=== PATIENT | female | born 2000 | race Caucasian/White ===

== ENCOUNTER 2023-03-23 22:04 | Inpatient (IN) | payer BC, SELFPAY ==
[2023-03-23 22:16] VITALS: BMI 31.4
[2023-03-23] MEDS ORDERED: Ondansetron PF 4 MG/2 ML Vial IVP PRN ×2 (22:30→23:32)
[2023-03-23] MEDS ORDERED: Tranexamic Acid 1,000 MG/10 ML VIAL IVP PRN (22:30)
[2023-03-23] MEDS ORDERED: Lidocaine 1% (PF) 30 ML VIAL SC PRN (22:30)
[2023-03-23] MEDS ORDERED: Promethazine HCl 25 MG/ML VIAL IM PRN ×2 (22:30→23:32)
[2023-03-23] MEDS ORDERED: Diphenoxylate HCl/Atropine Tablet PO PRN (22:30)
[2023-03-23] MEDS ORDERED: hydrALAZINE 20 MG/ML VIAL SLOW IVP PRN (22:30)
[2023-03-23] MEDS ORDERED: Methylergonovine 0.2 MG/ML VIAL IM PRN (22:30)
[2023-03-23] MEDS ORDERED: Misoprostol 200 MCG TAB PR PRN (22:30)
[2023-03-23] MEDS ORDERED: Oxytocin 30 units/NS 500 ML 500 ML IV SCH (22:30)
[2023-03-23] MEDS ORDERED: Carboprost 250 MCG/ML AMP IM PRN (22:30)
[2023-03-23] MEDS ORDERED: fentaNYL/Ropivacaine Epidural 100 ML ONE (22:35)
[2023-03-23 22:45] LABS: Hematocrit 36.4 % (34.9-44.5); Hemoglobin 12.8 g/dL (12.0-15.5); Mean Corpuscular HGB CONC 35.2 g/dL (32.0-36.0); Mean Corpuscular Hemoglobin 33.2 pg (27.0-33.0); Mean Corpuscular Volume 94.5 fl (81.6-98.3); Mean Platelet Volume 9.9 fl (7.4-10.4); Platelet Count 313 10x3/uL (150-450); RBC Distribution Width 11.9 % (11.5-14.5); Red Blood Cell (RBC) Count 3.85 10x6/uL (3.90-5.03); White Blood Cell (WBC) Count 27.7 10x3/uL (3.5-10.5)
[2023-03-23] MEDS ORDERED: fentaNYL 50 mcg/mL 1 mL Vial SLOW IVP SCH (22:45)
[2023-03-23] MEDS ORDERED: Penicillin G Potassium 5 MILL.UNITS in Sodium Chloride 0.9% 100 ML IVPB SCH (22:45)
[2023-03-23 23:15] LABS: HBSAg Index 0.12 S/CO (0-0.99); Hep B Surf Ag - L&D Non-Reactive S/CO (NonReactive)
[2023-03-23 23:16] LABS: Syphilis Antibody Nonreactive (Nonreactive); Syphilis Antibody Index 0.03 S/CO (<1.00 Non-Reactive)
[2023-03-23] MEDS ORDERED: Naloxone HCl 0.4 mg/ml Vial IVP PRN ×2 (23:32)
[2023-03-23] MEDS ORDERED: Acetaminophen 325 MG TAB PO PRN (23:32)
[2023-03-23] MEDS ORDERED: ePHEDrine Sulfate 50 MG/10 ML VIAL SLOW IVP PRN (23:32)
[2023-03-23] MEDS ORDERED: Lactated Ringer's 500 ML IV PRN (23:32)
[2023-03-23] MEDS ORDERED: diphenhydrAMINE 50 MG/ML VIAL IVP PRN (23:32)
[2023-03-23] MEDS ORDERED: Moisturizing Cream (Eucerin) 113 GM JAR TOP PRN (23:32)
[2023-03-23] MEDS ORDERED: Communication Order-Pharmacy FS SCH (23:45)
[2023-03-23] MEDS ORDERED: fentaNYL 2 mcg/Ropivacaine 0.2% Epidural 100 ML CADD EPIDURAL SCH (23:45)
[2023-03-24] MEDS ORDERED: fentaNYL 50 mcg/mL 1 mL Vial ONE (00:24)
[2023-03-24] MEDS: Penicillin G 2.5 MILL.units 2.5 MILL.UNITS in Premix Bag 1 BAG IVPB SCH ×3 (03:18→14:00)
[2023-03-24] MEDS ORDERED: CEFAZOLIN 2 GM VIAL ONE (06:29)
[2023-03-24] MEDS ORDERED: Azithromycin 500 MG VIAL ONE (06:30)
[2023-03-24] MEDS ORDERED: Bicitra 30 ML UDCUP PO PRN (06:55)
[2023-03-24] MEDS ORDERED: Famotidine/PF 20 mg/2ml Vial SLOW IVP PRN (06:55)
[2023-03-24] MEDS ORDERED: Azithromycin 500 MG in Sodium Chloride 0.9% 250 ML 250 ML IVPB SCH (07:00)
[2023-03-24] MEDS ORDERED: CEFAZOLIN 2 GM in Sodium Chloride 0.9% 100 ML IVPB SCH (07:00)
[2023-03-24] MEDS ORDERED: Chloroprocaine 3% PF 20 ML VIAL ONE (07:11)
[2023-03-24] MEDS ORDERED: PHENYLEPHRINE-NS 100 MCG/ML 10 ML SYRINGE ONE (07:11)
[2023-03-24] MEDS ORDERED: Ketorolac Tromethamine 30 MG/ML VIAL ONE (07:11)
[2023-03-24] MEDS ORDERED: Ondansetron PF 4 MG/2 ML Vial ONE (07:11)
[2023-03-24] MEDS ORDERED: Dexamethasone 4 mg/ml Vial ONE (07:11)
[2023-03-24] MEDS ORDERED: Oxytocin 10 UNITS/ML VIAL ONE (07:11)
[2023-03-24] MEDS ORDERED: Morphine PF 10 MG/10 ML VIAL ONE (07:38)
[2023-03-24] MEDS ORDERED: Succinylcholine 200 MG/10 ml SYRINGE FS ONE (07:46)
[2023-03-24] MEDS ORDERED: PROPOFOL 20 ML ONE (07:46)
[2023-03-24 08:11] LABS: RapidComm Collect By OR NURSE
[2023-03-24 08:14] LABS: RapidComm Collect By OR NURSE; pH (Cord, venous) 7.284 (7.250-7.350)
[2023-03-24] MEDS ORDERED: diphenhydrAMINE 50 MG/ML VIAL IVP PRN ×3 (08:47→08:48)
[2023-03-24] MEDS ORDERED: Ketorolac Tromethamine 30 MG/ML VIAL IVP PRN (08:47)
[2023-03-24] MEDS ORDERED: Moisturizing Cream (Eucerin) 113 GM JAR TOP PRN (08:47)
[2023-03-24] MEDS ORDERED: diphenhydrAMINE 50 MG/ML VIAL IM PRN ×2 (08:47→08:48)
[2023-03-24] MEDS ORDERED: Ondansetron PF 4 MG/2 ML Vial IVP PRN ×4 (08:47→08:48)
[2023-03-24] MEDS ORDERED: Naloxone HCl 0.4 mg/ml Vial IV PRN ×3 (08:47→08:48)
[2023-03-24] MEDS ORDERED: fentaNYL 50 mcg/mL 1 mL Vial SLOW IVP PRN (08:47)
[2023-03-24] MEDS ORDERED: Meperidine HCl/PF 25 MG/ML VIAL SLOW IVP PRN (08:47)
[2023-03-24] MEDS ORDERED: Promethazine HCl 25 MG SUPP PR PRN (08:47)
[2023-03-24] MEDS ORDERED: Promethazine HCl 25 MG/ML VIAL IM PRN ×3 (08:47→08:48)
[2023-03-24] MEDS ORDERED: Naloxone HCl 0.4 mg/ml Vial IVP PRN ×2 (08:47)
[2023-03-24] MEDS ORDERED: diphenhydrAMINE 25 MG CAP PO PRN ×2 (08:47→08:48)
[2023-03-24] MEDS ORDERED: FENTANYL 500 MCG/10 ML VIAL 2,000 MCG in Sodium Chloride 0.9% 60 ML IV PRN (08:48)
[2023-03-24] MEDS ORDERED: Ketorolac Tromethamine 30 MG/ML VIAL IVP SCH (09:00)
[2023-03-24] MEDS ORDERED: FENTANYL 500 MCG/10 ML VIAL 1,000 MCG in Sodium Chloride 0.9% 30 ML IV PRN (09:00)
[2023-03-24] MEDS ORDERED: Communication Order-Pharmacy FS PRN (09:00)
[2023-03-24] MEDS ORDERED: Communication Order-Pharmacy FS SCH ×2 (09:00)
[2023-03-24] MEDS ORDERED: Lanolin Ointment 7 GM TUBE TOP PRN (11:16)
[2023-03-24] MEDS ORDERED: Boostrix 0.5 ML (Tdap) VIAL (>/=7 yrs of age) IM ONE (11:16)
[2023-03-24] MEDS ORDERED: Simethicone Chewable 80 MG TAB PO PRN (11:16)
[2023-03-24] MEDS ORDERED: hydrALAZINE 20 MG/ML VIAL SLOW IVP PRN (11:16)
[2023-03-24] MEDS: Docusate 100 MG CAP PO SCH (21:00)
[2023-03-25] MEDS ORDERED: HYDROcodone/Acetaminophen 5/325 mg Tablet PO PRN (02:45)
[2023-03-25] MEDS: HYDROcodone/Acetaminophen 5/325 mg Tablet PO PRN ×5 (03:16→21:24)
[2023-03-25 05:51] LABS: Hematocrit 28.6 % (34.9-44.5); Hemoglobin 9.9 g/dL (12.0-15.5); Mean Corpuscular HGB CONC 34.6 g/dL (32.0-36.0); Mean Corpuscular Hemoglobin 33.4 pg (27.0-33.0); Mean Corpuscular Volume 96.6 fl (81.6-98.3); Mean Platelet Volume 9.9 fl (7.4-10.4); Platelet Count 203 10x3/uL (150-450); RBC Distribution Width 12.3 % (11.5-14.5); Red Blood Cell (RBC) Count 2.96 10x6/uL (3.90-5.03)
[2023-03-25] MEDS: Prenatal Vitamin 1 TAB PO SCH (08:01)
[2023-03-25] MEDS: Docusate 100 MG CAP PO SCH ×2 (08:01→21:23)
[2023-03-25] MEDS: Ibuprofen 800 MG TAB PO SCH ×2 (14:00→21:24)
[2023-03-25] MEDS ORDERED: Ferrous Sulfate 325 MG TAB PO SCH (21:15)
[2023-03-26] MEDS: Ibuprofen 800 MG TAB PO SCH (05:14)
[2023-03-26] MEDS ORDERED: Ferrous Sulfate 325 MG TAB PO SCH (08:00)
[2023-03-26 08:23] VITALS: BP 128/67; TEMP 98.5
[2023-03-26] MEDS: Prenatal Vitamin 1 TAB PO SCH (09:18)
[2023-03-26] MEDS: Docusate 100 MG CAP PO SCH (09:19)
== END 2023-03-26 10:40 | disposition home or self-care (01) | DRG 787 ==
LOC: CSHLD 22:04 → CSHPP 03-24 11:00
PROVIDERS: ADMIT Obstetrics & Gynecology; ATTEND Obstetrics & Gynecology
PROC: 10D00Z1 Extraction of Products of Conception, Low, Open Approach (ICD-10-PCS; principal; 2023-03-24)
PROC: 3E033VJ Introduction of Other Hormone into Peripheral Vein, Percutaneous Approach (ICD-10-PCS; 2023-03-24)
PROC: 4A033R1 Measurement of Arterial Saturation, Peripheral, Percutaneous Approach (ICD-10-PCS; 2023-03-24)
PROC: 3E033XZ Introduction of Vasopressor into Peripheral Vein, Percutaneous Approach (ICD-10-PCS; 2023-03-25)
DX: O42.02 Full-term premature rupture of membranes, onset of labor within 24 hours of rupture (principal); O72.1 Other immediate postpartum hemorrhage; O62.1 Secondary uterine inertia; Z3A.39 39 weeks gestation of pregnancy; Z37.0 Single live birth; O90.2 Hematoma of obstetric wound; O75.81 Maternal exhaustion complicating labor and delivery; O32.4XX0 Maternal care for high head at term, not applicable or unspecified; O32.8XX0 Maternal care for other malpresentation of fetus, not applicable or unspecified; O76 Abnormality in fetal heart rate and rhythm complicating labor and delivery
CPT/HCPCS: 36415; 51702; 82805; 85027; 86780; 86850; 86900; 86901; 87340; 99285; J1100; J1885; J2274; J2401; J2405; J2540; J2590; J2704; J3010; J3490

== ENCOUNTER 2024-05-09 13:25 | Outpatient (CLI) | payer BC | END 2024-05-09 13:26 | disposition home or self-care (01) | LOC: CSHULT 13:25 | DX: Z34.02 Encounter for supervision of normal first pregnancy, second trimester (principal); Z33.1 Pregnant state, incidental; Z3A.19 19 weeks gestation of pregnancy | CPT/HCPCS: 76805 ==